=== PATIENT | male | born 1955 | race Caucasian/White ===

== ENCOUNTER 2021-06-23 05:27 | Day surgery (SDC) | payer OTHER ==
[2021-06-18 12:38] LABS: BASOPHILS # (AUTO) 0.1 X10'3 (0-0.2); BASOPHILS % (AUTO) 0.8 % (0-1); EOSINOPHILS # (AUTO) 0.1 X10'3 (0-0.9); LYMPHOCYTES # (AUTO) 1.2 X10'3 (1.1-4.8); LYMPHOCYTES % (AUTO) 17.7 % (21-51); MEAN CORPUSCULAR HEMOGLOBIN 33.3 PG (27.0-31.0); MEAN CORPUSCULAR HGB CONC 34.4 g/dL (33.0-36.5); MEAN CORPUSCULAR VOLUME 96.9 FL (78-98); MEAN PLATELET VOLUME 8.9 FL (7.4-10.4); MONOCYTES # (AUTO) 0.9 X10'3 (0-0.9); MONOCYTES % (AUTO) 14.2 % (2-12); NEUTROPHILS # (AUTO) 4.4 X10'3 (1.8-7.7); NEUTROPHILS % (AUTO) 66.3 % (42-75); PRE OP HEMATOCRIT 44.5 % (42.0-52.0); PRE OP HEMOGLOBIN 15.3 g/dL (14.0-17.9); PRE OP PLATELET COUNT 251 X10'3 (140-440); RED BLOOD COUNT 4.59 X10'6 (4.70-6.10); RED CELL DISTRIBUTION WIDTH 13.4 % (11.5-14.5)
[2021-06-18 12:49] LABS: ALBUMIN 3.9 G/DL (3.4-5.0); ALKALINE PHOSPHATASE 33 IU/L (46-116); BLOOD UREA NITROGEN 19 MG/DL (7-18); BUN/CREATININE RATIO 19.2 (5.4-32.0); CALCIUM 8.2 MG/DL (8.5-10.1); CHLORIDE 105 MMOL/L (99-107); CREATININE 0.99 MG/DL (0.60-1.10); PRE OP ALT 46 U/L (30-65); PRE OP ANION GAP 13 (8-16); PRE OP AST 30 U/L (10-37); PRE OP GLUCOSE 96 MG/DL (70-104); PRE OP POTASSIUM 3.9 MMOL/L (3.4-5.1); PRE OP SODIUM 139 MMOL/L (135-145); TOTAL CARBON DIOXIDE 21.2 MMOL/L (24-32); TOTAL PROTEIN 7.9 G/DL (6.4-8.2); eGFR 75 ML/MIN
[~2021-06-23] VITALS: Ht 172.7 cm; Wt 87.3 kg
[2021-06-23] VITALS (16 sets, daily range): BP systolic 135–167; BP diastolic 76–99
[~2021-06-23 05:27] MED LIST: ACYC-129 PO; LOSA1TAB36 PO; PRAV80TA3 PO; ringers solution, lacted 1,000 ML IV SCH
[2021-06-23] MEDS ORDERED: cefazolin/dext.iso 2gm/50ml 50 ML IV ONE (05:30)
[2021-06-23] MEDS ORDERED: famotidine 20mg tablet PO ONE (05:30)
[2021-06-23] MEDS ORDERED: BUPIVAcaine/PF 2.5 mg/ml (0.25%) 30ml vial ONE (06:41)
[2021-06-23] MEDS ORDERED: morphine 2 MG/ML inj. syringe IV PRN (07:20)
[2021-06-23] MEDS ORDERED: ringers solution, lacted 1,000 ML IV SCH (07:20)
[2021-06-23] MEDS ORDERED: proCHLORperazine 10 MG/2 ml inj IV PRN (07:20)
[2021-06-23] MEDS ORDERED: ondansetron/PF 4mg/2ml inj IV PRN (07:20)
[2021-06-23] MEDS ORDERED: hydrALAZINE 20mg/ml inj. IV PRN (07:20)
[2021-06-23] MEDS ORDERED: acetaminophen 1,000mg/100ml IV 100 ML IV PRN (07:20)
[2021-06-23] MEDS ORDERED: labetalol 20mg/4ml (5mg/ml) syringe IV PRN (07:20)
[2021-06-23] MEDS ORDERED: morphine 4 MG/ML inj SYRINge IV PRN (07:20)
[2021-06-23] MEDS ORDERED: meperidine/PF 25mg/ml syringe IV PRN ×3 (07:20)
[2021-06-23] MEDS ORDERED: midazolam 1 mg/ML 2ml injection ONE (07:22)
[2021-06-23] MEDS ORDERED: fentaNYL /PF 50mcg/ml 5ml ampule ONE (07:23)
[2021-06-23] MEDS ORDERED: ondansetron/PF 4mg/2ml inj ONE (08:52)
[2021-06-23] MEDS ORDERED: rocuronium 10mg/ml inj IV ONE ×2 (08:52)
[2021-06-23] MEDS ORDERED: dexamethasone sod phosphate 4mg/ml inj. ONE (08:52)
[2021-06-23] MEDS ORDERED: LIDOcaine 2% (20mg/ml) 5ml vial ONE (08:52)
[2021-06-23] MEDS ORDERED: propofol inj 20 ML IV ONE ×2 (08:52)
[2021-06-23] MEDS ORDERED: sugammadex 200mg/2ml injection IV ONE (09:34)
[2021-06-23] MEDS ORDERED: ketorolac trometh. 30mg/ml inj. ONE (09:41)
[2021-06-23] MEDS ORDERED: morphine 10mg/ml inj. ONE (09:41)
[2021-06-23] MEDS ORDERED: glycopyrrolate 0.2mg/ml inj ONE (09:47)
[2021-06-23] MEDS ORDERED: neostigmine methylsulfate 1 MG/ML 10ml vial ONE (09:47)
--- NOTE | 2021-06-23 09:52 | NUR ---
Received from OR via , accompanied by Anesthesiologist DR. MCCOY and report given by Anesthesiolgist AND OR NURSE. PT ARRIVED DROWSY ON 10L 02 VIA MASK. 20G IV IN RIGHT HAND. 3 LAP SITES WITH STERI STRIPS C/D/I. PT VSS. NO PAIN OR NAUSEA NOTED. Addendum: 06/23/21 at 1012 by Jennifer Andrea RN Amended: Links added.
--- NOTE | 2021-06-23 16:02 | NUR ---
bladder scanned for 300+ urine in bladder. vss. patient has ambulated multiple times and has had much to drink orally. patient agrees to have catheter placed as per md cavazos's orders . all dc instructions covered and understood. education on catheter care and removal provided to patient who further understood instructions. also educated on removal of catheter if out of town. patients understands and was given info via text. Addendum: 06/23/21 at 1614 by Maurizio Gresham RN, RN Amended: Links added.
== END 2021-06-23 16:02 | disposition home or self-care (01) ==
LOC: PAS 05:27
PROVIDERS: ATTEND Surgery
DX: K40.20 Bilateral inguinal hernia, without obstruction or gangrene, not specified as recurrent (principal); K63.89 Other specified diseases of intestine; D17.6 Benign lipomatous neoplasm of spermatic cord; I25.10 Atherosclerotic heart disease of native coronary artery without angina pectoris; M19.90 Unspecified osteoarthritis, unspecified site; I10 Essential (primary) hypertension; Z79.899 Other long term (current) drug therapy; Z88.2 Allergy status to sulfonamides; Z88.8 Allergy status to other drugs, medicaments and biological substances; Z98.890 Other specified postprocedural states; Z20.822 Contact with and (suspected) exposure to COVID-19; Z82.49 Family history of ischemic heart disease and other diseases of the circulatory system
CPT/HCPCS: 36415; 49650; 80053; 82948; 85025; 93005; C1758; C1781; C9399; J1100; J1885; J2001; J2250; J2270; J2405; J2704; J2710; J3010; J3490; U0003; U0005; Z7506; Z7508; Z7512; A4215; A4618; J7120